=== PATIENT | male | born 1960 | race Caucasian/White ===

== ENCOUNTER → 2022-09-01 | Outpatient (CLI) | payer OTHER | END | disposition home or self-care (01) | LOC: LAB 15:50 → LAB SHORT 15:50 | DX: N40.1 Benign prostatic hyperplasia with lower urinary tract symptoms (principal); N20.0 Calculus of kidney; R31.0 Gross hematuria | CPT/HCPCS: 87086; 87147; 87184; 87186 ==

== ENCOUNTER → 2023-03-23 | Outpatient (CLI) | payer OTHER | LOC: LAB 17:27 → LAB SHORT 17:27 | DX: N39.0 Urinary tract infection, site not specified (principal) | CPT/HCPCS: 87086 ==

== ENCOUNTER 2023-05-02 07:55 | Day surgery (SDC) | payer OTHER ==
[2023-05-02] VITALS (20 sets, daily range): BP systolic 99–151; BP diastolic 63–113
[~2023-05-02] VITALS: Ht 180.3 cm; Wt 92.0 kg
[~2023-05-02 07:55] MED LIST: AMLO5 PO; ASPI81CH PO; FENO54 PO; FINA5 PO; LOSA50 PO; NAPR500 PO; OMEP20ER PO; TIZA4 PO
--- NOTE | 2023-05-02 08:43 | NUR ---
ATTEMPTED IV SITE VAGEL RESPONSE. BECAME DIAPHORETIC AND NAUSEATED. COOL WASH CLOTH APPLIED. IV SITE PLACED. IV FLUIDS GIVEN. NEW ORDER PER DR WORTHY 4 MG IV ZOFRAN GIVEN. PT STATES FEELING BETTER. BP STABILIZED. Ambulatory in Day Surgery History, Chart, Medications and Allergies reviewed before start of procedure.Patient confirms NPO status and agrees with scheduled surgery. Pre-Op teaching done. Pt verbalizes understanding. Patient States Post-Procedure ride home has been arranged.
--- NOTE | 2023-05-02 09:05 | NUR ---
05/02/23 0905 Ze Boss HISTORY, CHART, MEDICATIONS AND ALLERGIES REVIEWED BEFORE START OF PROCEDURE. PATIENT CONFIRMS NPO STATUS AND AGREES WITH SCHEDULED PROCEDURE. 3-LEAD EKG REVIEWED WITH PHYSICIAN PRIOR TO START OF PROCEDURE. MONITOR INTACT WITH CONTINUOUS PULSE OXIMETRY,CAPNOGRAPHY, 3-LEAD EKG, INTERMITTENT BP. SUPPLEMENTAL O2 TO BE TITRATED THROUGHOUT PROCEDURE TO MAINTAIN O2 SATURATION ABOVE 90%. PATIENT DETERMINED TO BE ASA APPROPRIATE FOR PROPOFOL SEDATION PRIOR TO START OF PROCEDURE BY DR. WORTHY.
--- NOTE | 2023-05-02 09:54 | NUR ---
Discharge instructions reviewed with patient. Patient verbalizes understanding. Copy given to patient to take home.
--- NOTE | 2023-05-02 10:03 | NUR ---
Discharged via wheelchair to private car for ride home.
== END 2023-05-02 10:05 | disposition home or self-care (01) ==
LOC: ORSCMMR 07:55 → ORD 09:00 → ORSCMMR 09:00
PROVIDERS: Internal Medicine Gastroenterology
PROC: 0DBM8ZX Excision of Descending Colon, Via Natural or Artificial Opening Endoscopic, Diagnostic (ICD-10-PCS; principal; 2023-05-02 09:00)
PROC: 0DBL8ZX Excision of Transverse Colon, Via Natural or Artificial Opening Endoscopic, Diagnostic (ICD-10-PCS; principal; 2023-05-02 09:00)
DX: Z12.11 Encounter for screening for malignant neoplasm of colon (principal); Z86.010 Personal history of colon polyps; K63.5 Polyp of colon; D12.4 Benign neoplasm of descending colon; K57.30 Diverticulosis of large intestine without perforation or abscess without bleeding; M62.89 Other specified disorders of muscle; I10 Essential (primary) hypertension; K21.9 Gastro-esophageal reflux disease without esophagitis; E78.00 Pure hypercholesterolemia, unspecified; Z79.82 Long term (current) use of aspirin; Z79.899 Other long term (current) drug therapy
CPT/HCPCS: 88305; J0461; J2405; J2704; J7120

== ENCOUNTER → 2024-08-20 | Outpatient (CLI) | payer OTHER | LOC: LAB SHORT 16:16 → LAB 16:16 | DX: R31.9 Hematuria, unspecified (principal) | CPT/HCPCS: 87086 ==